=== PATIENT | male | born 1960 | race Caucasian/White ===

== ENCOUNTER 2024-11-12 13:51 | Emergency (ER) | payer MEDICAID, SELFPAY ==
[2024-11-12 13:53] VITALS: BMI 22.8
[2024-11-12 14:08] VITALS: BP 112/73; PULSE 73; RESP 18; TEMP 37.3; O2SAT 97
--- NOTE | 2024-11-12 14:45 | PD.EDADULT ---
ED General RME/HPI General Chief complaint: General Adult/Misc Complain Stated complaint: MEDICATION REFILL Time Seen by Provider: 11/12/24 13:55 Arrival date/time: 11/12/24 13:51 64-year-old male presents emergency department today stating that he just moved here from [place] he reports he is helping his mother with her home reports that he has been on lacosamide prescribed by neurologist in [place] reports this prevents him from having seizures reports he is unable to get the medication as it is over $3000 Limitations: no limitations Related Data Previous Rx's ?Medication ?Instructions ?Recorded lacosamide 150 mg tablet 150 mg PO BID #180 tabs 11/12/24 Allergies Allergy/AdvReac Type Severity Reaction Status Date / Time codeine Allergy Verified 11/12/24 13:52 Penicillins Allergy Verified 11/12/24 13:52 Tetanus Vaccines and Toxoid Allergy Verified 11/12/24 13:52 Review of Systems Review of Systems Systems Reviewed: All systems reviewed, normal except as documented Constitutional Constitutional: Reports system reviewed and no additional complaints, except as documented, Denies fever(s) and Denies headache(s) Eyes Eyes: Reports system reviewed and no additional complaints, except as documented and Denies blurry vision ENT Ears, Nose, Mouth, and Throat: Reports system reviewed and no additional complaints, except as documented, Denies headache(s), Denies nasal congestion and Denies nasal discharge Cardiovascular Cardiovascular: Reports system reviewed and no additional complaints, except as documented, Denies chest pain and Denies dyspnea Respiratory Respiratory: Reports system reviewed and no additional complaints, except as documented, Denies chest congestion, Denies cough and Denies dyspnea Gastrointestinal Gastrointestinal: Reports system reviewed and no additional complaints, except as documented and Denies abdominal pain Integumentary/Breasts Skin/Breast: Reports system reviewed and no additional complaints, except as documented and Denies rash Neurologic Neurologic: Reports system reviewed and no additional complaints, except as documented, Reports as per HPI and Denies headache(s) Past Medical History Social History SMOKING STATUS: Current every day smoker ED Exam General Limitations: Present no limitations General appearance: Present alert and in no apparent distress Head Head exam: Present atraumatic Eye Eye exam: Present normal appearance, PERRL and EOMI ENT ENT exam: Present normal exam, normal oropharynx and mucous membranes moist Neck Neck exam: Present normal inspection, full ROM and trachea midline Chest Chest inspection: Present normal inspection and symmetric chest wall rise Respiratory Respiratory exam: Present normal lung sounds bilaterally Cardiovascular Cardiovascular exam: Present regular rate, normal rhythm and normal heart sounds Abdominal Exam Abdominal exam: Present soft and normal bowel sounds; Absent distention, tenderness, guarding, rebound or rigidity Extremities Exam Extremities exam: Present normal inspection and full ROM Back Exam Back exam: Present normal inspection and full ROM Neurological Exam Neurological exam: Present alert, oriented X3 and CN II-XII intact Psychiatric Psychiatric exam: Present normal affect and normal mood Skin Skin exam: Present warm, dry, intact and normal color Course Quality Measures none Vital Signs Vital signs: Vital Signs Temperature 99.1 F 11/12/24 14:08 Pulse Rate 73 11/12/24 14:08 Respiratory Rate 18 11/12/24 14:08 Blood Pressure 112/73 11/12/24 14:08 Pulse Oximetry (%) 97 11/12/24 14:08 Oxygen Delivery Method Room Air 11/12/24 14:08 O2 saturation 97% room air within normal limits MDM Patient data External records reviewed:: [facility] previous records Clinical information provided by:: patient Social determinants that could affect healthcare access:: none Patient has the following chronic illnesses:: Seizures How is presenting disease/condition affected by chronic disease/condition?: caused by Evaluation data The following diagnostics were reviewed and interpreted by me:: other (specify) Lab and/or radiology exams considered but not ordered:: Consider not ordered Interpretation Summary: N/A Medications Medications considered but not ordered:: Rx given Medication administrations:: Rx given Consultations Consultation(s) initiated? (list below): No Diagnosis Differential Diagnosis ED Complaint MDM: Psychiatric disorder, epilepsy, seizure disorder Most likely diagnosis given after review of the tests above:: Seizure disorder Admission Indicated Admission indicated?: not indicated Explain why admission is indicated or not indicated:: No criteria Admission Request Was there a request for admission?: No Disposition Plan Disposition Plan: Discharge Discharge Attestation Discharge Attestation: The patient and all family members were given an opportunity to ask questions and understood the discharge instructions. Discharge instructions specifically effects, indications for sooner follow up or return to the emergency department, and the expected course of current diagnosis. Patient condition: Stable Medical Decision Making MDM Narrative MDM Narrative: 64-year-old male presents emergency department today stating that he just moved here from [place] he reports he is helping his mother with her home reports that he has been on lacosamide prescribed by neurologist in [place] reports this prevents him from having seizures reports he is unable to get the medication as it is over $3000 I was able to find a coupon on [facility] and was able to send patient a prescription patient was very thankful for the care Patient discharged home in no distress to follow-up with primary care doctor in the next 24 to 48 hours and for any worsening symptoms to return to the ER immediately Differential Diagnosis Differential Diagnosis: Psychiatric disorder, epilepsy, seizure disorder Medical Records Medical records reviewed: Yes I reviewed the patient's medical records. Discharge Plan Plan Patient Disposition: HOME (Self Care) Disposition Comment: Stable Prescriptions/Referrals Prescriptions/Med Rec: New lacosamide 150 mg tablet 150 mg PO BID Qty: 180 0RF Problem List Clinical Impression: Epilepsy, Medication refill Patient/Caregiver Discharge Instructions Education Materials: Self-Care for Epilepsy Additional Instructions: Please follow up with your primary care doctor in the next 24-48hrs for any worsening symptoms return here immediately Print Language: Mauritanian Stand Alone Forms: Rebecca Award Info., Patient Portal Info Letter PA/INSTRUCTOR ADJUNCT PHARMACY TECHNICIAN Supervising Physician CASEY/RAGHU Supervising Physician: Dr Good
== END 2024-11-12 14:52 | disposition home or self-care (01) ==
PROVIDERS: Emergency Provider Emergency Medicine
DX: Z76.0 Encounter for issue of repeat prescription (principal); G40.909 Epilepsy, unspecified, not intractable, without status epilepticus
CPT/HCPCS: 99281

== ENCOUNTER 2025-04-24 17:21 | Emergency (ER) | payer SELFPAY ==
--- NOTE | 2025-04-24 17:26 | EKG_ITS ---
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
[2025-04-24 18:01] VITALS: BP 152/88; PULSE 63; RESP 18; TEMP 36.9; O2SAT 99
[2025-04-24 18:03] VITALS: BMI 24.2
--- NOTE | 2025-04-24 18:47 | PD.EDRME ---
Rapid Medical Screening Exam RME Arrival date/time: 04/24/25 17:21 Chief Complaint: Chest Pain Time Seen by Provider: 04/24/25 18:33 Vital signs: Vital Signs Temperature 98.5 F 04/24/25 18:01 Pulse Rate 63 04/24/25 18:01 Respiratory Rate 18 04/24/25 18:01 Blood Pressure 152/88 H 04/24/25 18:01 Pulse Oximetry (%) 99 04/24/25 18:01 Oxygen Delivery Method Room Air 04/24/25 18:01 Vital signs reviewed by provider: Yes RME Narrative: 64-year-old male with a past medical history of seizures and chronic back pain presents to the ED with a complaint of anterior chest pressure that came on at rest after he had recovered from a seizure. It has been constant since this morning. There is no radiation of pain/pressure. It is currently a 2/10 and at its worst it was a 7/10. There are no exacerbating or alleviating factors. He has had some associated shortness of breath as well as some nausea. He denies any recent illness with fever, chills, cough, upper respiratory complaints, vomiting, diarrhea, or abdominal pain. He came from [place] 4 to 5 months ago and has no current doctor to prescribe his seizure medications. I have greeted and performed a focused initial assessment of this patient. A comprehensive ED assessment and evaluation of the patient, analysis of all test results, and completion of the medical decision making process will be conducted by additional ED providers.
--- NOTE | 2025-04-24 19:42 | PC.NURSE ---
Pt NA x3 @ 1929, 1934, 1940-n Will elope chart.
== END 2025-04-24 19:44 | disposition left against medical advice (07) ==
LOC: SERX 17:44
PROVIDERS: Emergency Provider Emergency Medicine
DX: R07.9 Chest pain, unspecified (principal); Z53.29 Procedure and treatment not carried out because of patient's decision for other reasons; R06.02 Shortness of breath
CPT/HCPCS: 80053; 80307; 81001; 83615; 83735; 83880; 84484; 85025; 85610; 85730; 93005; 99283

== ENCOUNTER 2025-04-25 07:30 | Emergency (ER) | payer MEDICAID, SELFPAY ==
[2025-04-25 07:30] VITALS: BMI 23.8
--- NOTE | 2025-04-25 07:36 | EKG_ITS ---
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
[2025-04-25 07:37] VITALS: BP 119/76; PULSE 55; RESP 19; TEMP 36.8; O2SAT 97; BMI 23.9
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
[2025-04-25 08:26] LABS: Amphetamine/Methamp Scrn,U Negative (Negative); Barbiturate Screen,Urine Negative (Negative); Benzodiazepines Screen,Urine Negative (Negative); Benzoylecgonine Screen, Ur Negative (Negative); Fentanyl Screen,Urine Negative (Negative); Opiate Screen,Urine Negative (Negative); THC Screen,Urine Positive (Negative)
[2025-04-25 08:33] LABS: Basophils # (Auto) 0.0 Thou/mm3 (0.0-0.2); Basophils % (Auto) 0 % (0-2.5); Eosinophils # (Auto) 0.2 Thou/mm3 (0.0-0.5); Eosinophils % (Auto) 4 % (0-10); Hematocrit 42.7 % (41.0-53.0); Hemoglobin 14.1 g/dL (13.5-16.0); Immature Granulocytes Auto 0.01 Thou/mm3 (0.00-0.00); Lymphocytes # (Auto) 2.2 Thou/mm3 (1.0-4.8); Lymphocytes % (Auto) 34 % (10-50); Mean Corpuscular HGB Conc 33.0 g/dl (31.0-37.0); Mean Corpuscular Hemoglobin 31.4 pg (25.0-35.0); Mean Corpuscular Volume 95 fL (80-100); Monocytes # (Auto) 0.7 Thou/mm3 (0.0-0.8); Monocytes % (Auto) 11 % (0-12); Neutrophils # (Auto) 3.4 Thou/mm3 (1.8-7.7); Neutrophils % (Auto) 52 % (37-80); Nucleated Red Blood Cell # 0.00 Thou/mm3 (0.00-0.00); Nucleated Red Blood Cell % 0 /100 WBC (0); Platelet Count 220 Thou/mm3 (140-440); RDW Standard Deviation 45.9 fL (35.1-43.9); Red Blood Count 4.49 Miln/mm3 (4.50-5.90); White Blood Count 6.5 Thou/mm3 (3.8-10.6)
[2025-04-25 08:46] LABS: Alanine Aminotransferase 44 U/L (10-49); Albumin, Serum 4.6 gm/dL (3.4-4.8); Albumin/Globulin Ratio 1.6 (1.2-2.2); Alkaline Phosphatase 69 U/L (46-116); Anion Gap 8 (7-16); Aspartate Amino Transferase 35 U/L (0-34); BUN/Creatinine Ratio 22 Ratio (12-20); Bilirubin,Total 0.8 mg/dL (0.3-1.2); Blood Urea Nitrogen 20 mg/dL (9-23); Calcium 9.6 mg/dL (8.3-10.6); Calcium (Corrected) 9.6 mg/dL (8.5-10.1); Carbon Dioxide 29.0 mMol/L (20.0-31.0); Chloride 105 mMol/L (98-107); Creatinine (Component) 0.9 mg/dL (0.6-1.3); Estimated Creatinine Clearance 82.3 mL/min (>60); Globulin 2.8 gm/dL (2.3-3.5); Glucose 91 mg/dL (74-106); Lipase 45 U/L (12-53); Osmolality,Calculated 285 (275-295); Potassium 4.3 mMol/L (3.4-5.1); Sodium 142 mMol/L (136-145); Total Protein 7.4 gm/dL (5.7-8.2); Troponin I < 0.020 ng/mL (0.0-0.045); eGFR > 60 See Note
--- NOTE | 2025-04-25 09:27 | PD.EDCHEST ---
ED Chest Pain RME/HPI General Chief Complaint: Chest Pain Stated Complaint: CHEST PAIN X 2 DAYS Time Seen by Provider: 04/25/25 09:07 Arrival date/time: 04/25/25 07:30 64-year-old male presents to the emergency department today for complaints of chest pain ongoing intermittently for last couple of days patient reports no nausea vomiting or fever no shortness of breath. Limitations: no limitations Related Data Previous Rx's ?Medication ?Instructions ?Recorded lacosamide 150 mg tablet 150 mg PO BID #180 tabs 11/12/24 hydrocodone 5 mg-acetaminophen 325 1 tab PO BID PRN pain #6 tabs 04/25/25 mg tablet meloxicam 7.5 mg tablet 7.5 mg PO QDAY 7 days #7 tabs 04/25/25 prednisone 20 mg tablet 20 mg PO BID 3 days #6 tabs 04/25/25 Allergies Allergy/AdvReac Type Severity Reaction Status Date / Time codeine Allergy Verified 04/25/25 07:34 Penicillins Allergy Verified 04/25/25 07:34 Tetanus Vaccines and Toxoid Allergy Verified 04/25/25 07:34 Review of Systems Review of Systems Systems Reviewed: All systems reviewed, normal except as documented Constitutional Constitutional: Reports system reviewed and no additional complaints, except as documented, Denies fever(s) and Denies headache(s) Eyes Eyes: Reports system reviewed and no additional complaints, except as documented and Denies blurry vision ENT Ears, Nose, Mouth, and Throat: Reports system reviewed and no additional complaints, except as documented, Denies headache(s), Denies nasal congestion and Denies nasal discharge Cardiovascular Cardiovascular: Reports system reviewed and no additional complaints, except as documented, Reports chest pain, Denies chest pain with activity, Denies dyspnea and Denies edema Respiratory Respiratory: Reports system reviewed and no additional complaints, except as documented, Denies chest congestion, Denies cough and Denies dyspnea Gastrointestinal Gastrointestinal: Reports system reviewed and no additional complaints, except as documented and Denies abdominal pain Integumentary/Breasts Skin/Breast: Reports system reviewed and no additional complaints, except as documented and Denies rash Neurologic Neurologic: Reports system reviewed and no additional complaints, except as documented, Reports as per HPI and Denies headache(s) Past Medical History Social History SMOKING STATUS: Current some day smoker ED Exam General Limitations: Present no limitations General appearance: Present alert and in no apparent distress Head Head exam: Present atraumatic Eye Eye exam: Present normal appearance, PERRL and EOMI ENT ENT exam: Present normal exam, normal oropharynx and mucous membranes moist Neck Neck exam: Present normal inspection, full ROM and trachea midline Chest Chest inspection: Present normal inspection and symmetric chest wall rise Respiratory Respiratory exam: Present normal lung sounds bilaterally Cardiovascular Cardiovascular exam: Present regular rate, normal rhythm and normal heart sounds; Absent bradycardia, tachycardia or irregular rhythm Abdominal Exam Abdominal exam: Present soft and normal bowel sounds; Absent distention, tenderness, guarding, rebound or rigidity Extremities Exam Extremities exam: Present normal inspection and full ROM Back Exam Back exam: Present normal inspection and full ROM Neurological Exam Neurological exam: Present alert, oriented X3, CN II-XII intact, normal gait and reflexes normal; Absent motor sensory deficit Psychiatric Psychiatric exam: Present anxious; Absent flat affect, manic, homicidal ideation or suicidal ideation Skin Skin exam: Present warm, dry and intact Course Quality Measures none Orders Category Date Time Status EKG (ED ONLY) *Do not use* NOW Care 04/25/25 07:36 Completed EKG (ED Only) Stat Exams 04/25/25 07:36 Draft XR chest 2V Stat Exams 04/25/25 07:43 Completed CBC Stat Lab 04/25/25 08:21 Completed Comprehensive Metabolic Panel Stat Lab 04/25/25 08:21 Completed Drug Screen,Urine Stat Lab 04/25/25 08:00 Completed Lipase Stat Lab 04/25/25 08:21 Completed Troponin I Stat Lab 04/25/25 08:21 Completed Dexamethasone Inj [Decadron Inj] Med 04/25/25 09:32 Discontinued 10 mg PO X1 ONE Ketorolac Inj [Toradol Inj] Med 04/25/25 09:32 Discontinued 30 mg IM X1 ONE Vital Signs Vital signs: Vital Signs Temperature 98.2 F 04/25/25 07:37 Pulse Rate 55 L 04/25/25 07:37 Respiratory Rate 19 04/25/25 07:37 Blood Pressure 119/76 04/25/25 07:37 Pulse Oximetry (%) 97 04/25/25 07:37 Oxygen Delivery Method Room Air 04/25/25 07:37 O2 saturation 97% on room air within normal limits PROCEDURES: EKG Interpretation #1: Date of EK04/25/25 Time of EK:44 Rate: 62 Interpretation: Interpreted by me EKG Impression: Normal sinus rhythm, No acute ST-T changes, No ectopy, No ischemic changes, Normal QRS and Normal intervals Chest Pain MDM Narrative [facility] Narrative:: 64-year-old male presents to the emergency department today for complaints of chest pain ongoing intermittently for last couple of days patient reports no nausea vomiting or fever no shortness of breath. On exam patient well-appearing patient does not appear toxic no acute distress Lab work and imaging obtained no acute emergent findings noted Patient reports that he has chest pain but primarily has a lot of joint pain and generalized bodyaches as well. Workup today is unremarkable patient is anxious Patient discharged with pain medications Patient discharged home in no distress to follow-up with primary care doctor in the next 24 to 48 hours and for any worsening symptoms to return to the ER immediately Patient data External records reviewed:: [facility] previous records Clinical information provided by:: patient Social determinants that could affect healthcare access:: none Patient has the following chronic illnesses:: None How is presenting disease/condition affected by chronic disease/condition?: no chronic disease Evaluation data The following diagnostics were reviewed and interpreted by me:: lab results, radiology exam(s) and EKG tracing(s) Lab and/or radiology exams considered but not ordered:: Labs radiology, EKG obtained Interpretation Summary: Reviewed by me Medications / Prescriptions Medications or Prescriptions considered but not ordered:: Given Medication administrations:: Medication Administration History Discontinued Medications Dexamethasone Sodium Phosphate (Dexamethasone Sod Phos Inj 10 Mg/Ml Vial) 10 mg PO X1 ONE Stop: 04/25/25 09:33 Last Admin: 04/25/25 09:38 Dose: 10 mg Documented By: JENNIFER Ketorolac Tromethamine (Ketorolac Inj 30 Mg/Ml Vial) 30 mg IM X1 ONE Stop: 04/25/25 09:33 Last Admin: 04/25/25 09:38 Dose: 30 mg Documented By: JENNIFER Given Consultations Consultation(s) initiated? (list below): No Diagnosis Chest Pain Differential Diagnosis: stable angina, unstable angina pectoris, atypical chest pain and chest pain Most likely diagnosis given after review of the tests above:: Chest pain, anxiety Admission Indicated Admission indicated?: not indicated Admission Request Was there a request for admission?: No Disposition Plan Disposition Plan: Discharge Discharge Attestation Discharge Attestation: The patient and all family members were given an opportunity to ask questions and understood the discharge instructions. Discharge instructions specifically effects, indications for sooner follow up or return to the emergency department, and the expected course of current diagnosis. Patient condition: Stable Discharge Plan Plan Patient Disposition: HOME (Self Care) Discharge Disposition comment: Stable Prescriptions/Referrals Prescriptions/Med Rec: New prednisone 20 mg tablet 20 mg PO BID 3 Days Qty: 6 0RF meloxicam 7.5 mg tablet 7.5 mg PO QDAY 7 Days Qty: 7 0RF hydrocodone-acetaminophen 5-325 mg tablet 1 tab PO BID MDD 10 PRN (Reason: pain) Qty: 6 0RF No Action lacosamide 150 mg tablet 150 mg PO BID Qty: 180 0RF Referrals: No Primary/Family,Physician [Primary Care Provider] - In 1 week Problem List Clinical Impression: Atypical chest pain, Joint pain Patient/Caregiver Discharge Instructions Education Materials: RICE Print Language: [place] Citizen Stand Alone Forms: Rebceca Award Info., Patient Portal Info Letter PA/HUMANITIES PROFESSOR Supervising Physician PA/HUMANITIES PROFESSOR Supervising Physician: DR ECHOLS
[2025-04-25] MEDS: DEXAMETHASONE SOD PHOS INJ 10 MG/ML VIAL PO (09:38)
[2025-04-25] MEDS: KETOROLAC INJ 30 MG/ML VIAL IM (09:38)
[2025-04-25 09:45] VITALS: BP 122/68; PULSE 70; RESP 19; TEMP 36.7; O2SAT 100
== END 2025-04-25 09:46 | disposition home or self-care (01) ==
PROVIDERS: Nurse Practitioner Primary Care; Emergency Provider Emergency Medicine
DX: R07.89 Other chest pain (principal); M25.50 Pain in unspecified joint; R00.1 Bradycardia, unspecified; I45.10 Unspecified right bundle-branch block
CPT/HCPCS: 36415; 71046; 80053; 80307; 83690; 84484; 85025; 93005; 96372; 99284; J1100; J1885